=== PATIENT | male | born 1990 | race Caucasian/White ===

== ENCOUNTER 2018-01-19 16:40 | Emergency (ER) | payer OTHER ==
[~2018-01-19] VITALS: Ht 167.6 cm; Wt 68.0 kg
--- OUTSIDE RECORDS SUMMARY | 2018-01-19 16:47 | XMS REPORT | CCD ---
Author Author GRABIEL MEANS Organization Unknown Address [address] [facility] [address] [address] Care Team Providers Care Local Az Truck Driver Name Role Phone COX, SAMUEL DO Attphys COX, SAMUEL DO Prisurg Allergies Unknown or Not Available. Active Medications Unknown or Not Available. Problems Unknown or Not Available. Procedures Procedure Code Procedure Type Date CHLAMYDIA/GC AMPLIFIED DNA [id number] SNOMED CT 11/09/2015 UA ROUTINE C&S IF IND [id number] SNOMED CT 11/09/2015 ^UA AUTO DIPSTICK ONLY [id number] SNOMED CT 11/09/2015 Results UA ROUTINE C&S IF IND - Collect Date/Time: 11/09/2015 10:00 Test Name Code Test Result Test Units Test Ref Range COLOR YELLOW N/A NL: YELLOW APPEARANCE CLEAR N/A NL: CLEAR SPEC GRAV 1.015 N/A NL: 1.002 - 1.022 pH 6.5 N/A NL: 5 - 9 PROTEIN NEGATIVE N/A NL: NEGATIVE mg/dl GLUCOSE NEGATIVE N/A NL: NEGATIVE mg/dl KETONE NEGATIVE N/A NL: NEGATIVE mg/dl BILIRUBIN NEGATIVE N/A NL: NEGATIVE BLOOD NEGATIVE N/A NL: NEGATIVE NITRITE NEGATIVE N/A NL: NEGATIVE LEUK SCREEN NEGATIVE N/A NL: NEGATIVE MICRO INDICATED? NOT INDICATED N/A CHLAMYDIA/GC AMPLIFIED DNA - Collect Date/Time: 11/07/2015 10:00 Test Name Code Test Result Test Units Test Ref Range Neisseria Gonorrhoeae 87010-6 NEGATIVE N/A NEGATIVE Chlamydia Trachomatis 99105-1 NEGATIVE N/A NEGATIVE Function Status Unknown or Not Available. History of Immunizations Unknown or Not Available. Plan of Treatment Unknown or Not Available. Social History Smoking Status Code Start Date End Date Current every day smoker [id number] Vital Signs Unknown or Not Available. Function Status Unknown or Not Available. Goals Unknown or Not Available. ASSESSMENTS Unknown or Not Available. Health Concerns Section Unknown or Not Available.
--- OUTSIDE RECORDS SUMMARY | 2018-01-19 16:47 | XMS REPORT ---
Author Author JOSE JACOME Organization [facility] Address [address] [place] [address] Care Team Providers Care Talend Etl Developer Name Role Phone JOSE JACOME Unavailable PROBLEMS Type Condition ICD9-CM Code [id number] Code Onset Dates Condition Status SNOMED Code Problem Panic disorder F41.0 Active 525082599 Problem Alcohol use disorder, mild, abuse F10.10 Active 44956048 Problem Bipolar 2 disorder, major depressive episode F31.81 Active 51642517 ALLERGIES No Information ENCOUNTERS Encounter Location Date Diagnosis [place] [id number] [place] [phone] Nov, [facility] [id number] [place] [phone] Oct, [facility] [id number] [place] [phone] Oct, Bipolar 2 disorder, major depressive episode F31.81 ; Panic disorder F41.0 and Alcohol use disorder, mild, abuse F10.10 [place] [address] [place] [address] Oct, [facility] [id number] [place] [phone] Oct, Bipolar 2 disorder, major depressive episode F31.81 ; Panic disorder F41.0 and Alcohol use disorder, mild, abuse F10.10 [place] [id number] [place] [phone] Oct, Bipolar 2 disorder, major depressive episode F31.81 IMMUNIZATIONS No Known Immunizations SOCIAL HISTORY Never Assessed REASON FOR VISIT [facility] PLAN OF CARE VITAL SIGNS MEDICATIONS Medication Instructions Dosage Frequency Start Date End Date Duration Status Naltrexone HCl 50 mg Orally Once a day 1/2 tablet 24h Oct, 30 day(s) Active Vraylar 1.5 MG Orally Once a day 1 capsule 24h Oct, 30 day(s) Active RESULTS No Results PROCEDURES No Known procedures INSTRUCTIONS MEDICATIONS ADMINISTERED No Known Medications MEDICAL (GENERAL) HISTORY Type Description Date Medical History Childhood asthma Medical History BULGING DISCS Medical History MIGRAINES Medical History NERVE PAIN TO BUE Surgical History elbow nerve transposition 11/2016
--- OUTSIDE RECORDS SUMMARY | 2018-01-19 16:47 | XMS REPORT ---
Author Author QUINN CABRERA Organization [facility] Address [address] [place] [address] Care Team Providers Care Beauty School Instructor Name Role Phone QUINN CABRERA Unavailable PROBLEMS Type Condition ICD9-CM Code VSH95-KE Code Onset Dates Condition Status SNOMED Code Problem Panic disorder F41.0 Active 351424445 Problem Alcohol use disorder, mild, abuse F10.10 Active 68512706 Problem Bipolar 2 disorder, major depressive episode F31.81 Active 20236606 ALLERGIES Substance Reaction Event Type Date Status Keflex rash Drug Allergy Oct, Active ENCOUNTERS Encounter Location Date Diagnosis [facility] [id number] [place] [phone] Nov, [facility] [id number] [place] [address] [phone] Oct, [facility] [id number] [place] [address] [phone][address] [phone] Oct, Bipolar 2 disorder, major depressive episode F31.81 ; Panic disorder F41.0 and Alcohol use disorder, mild, abuse F10.10 [facility] [address] [place] [address] 47[address] [phone] Oct, [facility] [id number] [place] [address] [phone]- [phone] Oct, Bipolar 2 disorder, major depressive episode F31.81 ; Panic disorder F41.0 and Alcohol use disorder, mild, abuse F10.10 [facility] [address] [place] [address] [phone] Oct, Bipolar 2 disorder, major depressive episode F31.81 IMMUNIZATIONS No Known Immunizations SOCIAL HISTORY Never Assessed REASON FOR VISIT f/u PLAN OF CARE Activity Details Follow Up Next available Reason: VITAL SIGNS MEDICATIONS Medication Instructions Dosage Frequency Start Date End Date Duration Status Vraylar 1.5 MG Orally Once a day 1 capsule 24h Oct, 30 day(s) Unknown Naltrexone HCl 50 mg Orally Once a day 1/2 tablet 24h Oct, 30 day(s) Unknown RESULTS No Results PROCEDURES Procedure Date Ordered Result Body Site Psychotherapy, patient &/family, 30 minutes, established patient Oct 24, 2017 INSTRUCTIONS MEDICATIONS ADMINISTERED No Known Medications MEDICAL (GENERAL) HISTORY Type Description Date Medical History Childhood asthma Medical History BULGING DISCS Medical History MIGRAINES Medical History NERVE PAIN TO BUE Surgical History elbow nerve transposition 11/2016
--- OUTSIDE RECORDS SUMMARY | 2018-01-19 16:47 | XMS REPORT | CCD ---
Author Author GRABIEL MEANS Organization Unknown Address [address] [facility] [address] [address] Care Team Providers Care Milk Delivery Driver Name Role Phone COX, SAMUEL DO Attphys COX, SAMUEL DO Prisurg Allergies Unknown or Not Available. Active Medications Unknown or Not Available. Problems Unknown or Not Available. Procedures Procedure Code Procedure Type Date CHLAMYDIA/GC AMPLIFIED DNA [id number] SNOMED CT 11/09/2015 UA ROUTINE C&S IF IND [id number] SNOMED CT 11/09/2015 ^UA AUTO DIPSTICK ONLY [id number] SNOMED CT 11/09/2015 Results UA ROUTINE C&S [...] Test Units Test Ref Range Neisseria Gonorrhoeae 01398-7 NEGATIVE N/A NEGATIVE Chlamydia Trachomatis 21665-6 NEGATIVE N/A NEGATIVE Function Status Unknown or Not Available. History of Immunizations Unknown or Not Available. Plan of Treatment Unknown or Not Available. Social History Smoking Status Code Start Date End Date Current every day smoker 139814589 Vital Signs Unknown or Not Available. Function Status Unknown or Not Available. Goals Unknown or Not Available. ASSESSMENTS Unknown or Not Available. Health Concerns Section Unknown or Not Available.
--- OUTSIDE RECORDS SUMMARY | 2018-01-19 16:47 | XMS REPORT ---
Author Author BHAVNA STEELE [facility] Address [address] [place] [address] Care Team Providers Care Drum Reel Cutter Name Role Phone IVETTEBHAVNA Unavailable PROBLEMS Type Condition ICD9-CM Code [id number]-UZ Code Onset Dates Condition Status SNOMED Code Problem Panic disorder F41.0 Active 014560132 Problem Alcohol use disorder, mild, abuse F10.10 Active 67162488 Problem Bipolar 2 disorder, major depressive episode F31.81 Active 06940151 ALLERGIES No Information ENCOUNTERS Encounter Location Date Diagnosis [place] [address] [place] [phone] Oct, [facility] [id number] [place] [phone] Oct, Bipolar 2 disorder, major depressive episode F31.81 ; Panic disorder F41.0 and Alcohol use disorder, mild, abuse F10.10 [facility] [address] [place] [address]13[phone] Oct, [facility] [address] [address] Oct, Bipolar 2 disorder, major depressive episode F31.81 ; Panic disorder F41.0 and Alcohol use disorder, mild, abuse F10.10 [facility] [address] [place] [address] 12527[phone] Oct, Bipolar 2 disorder, major depressive episode F31.81 IMMUNIZATIONS No Known Immunizations SOCIAL HISTORY Never Assessed REASON FOR VISIT Vraylar non-form, discuss other med options PLAN OF CARE VITAL SIGNS MEDICATIONS Medication Instructions Dosage Frequency Start Date End Date Duration Status Abilify 5 mg Orally Once a day for two weeks, then 1 tablet daily 1/2 tablet Oct, 30 day(s) Active RESULTS No Results PROCEDURES No Known procedures INSTRUCTIONS MEDICATIONS ADMINISTERED No Known Medications MEDICAL (GENERAL) HISTORY Type Description Date Medical History Childhood asthma Medical History BULGING DISCS Medical History MIGRAINES Medical History NERVE PAIN TO BUE Surgical History elbow nerve transposition 11/2016
--- OUTSIDE RECORDS SUMMARY | 2018-01-19 16:47 | XMS REPORT ---
Author Author BHAVNA STEELE [facility] Address [address] [place] [address] Care Team Providers Care Semiconductor Wafer Inspector Name Role Phone IVETTEBHAVNA Unavailable PROBLEMS Type Condition ICD9-CM Code [id number] Code Onset Dates Condition Status SNOMED Code Problem Panic disorder F41.0 Active 882544319 Problem Alcohol use disorder, mild, abuse F10.10 Active 61658616 Problem Bipolar 2 disorder, major depressive episode F31.81 Active 47961902 ALLERGIES Substance Reaction Event Type Date Status Keflex rash Drug Allergy Oct, Active ENCOUNTERS Encounter Location Date Diagnosis [facility] [id number] [place] [phone][phone] Nov, [facility] [id number] [place] [address] 08061[address] [phone] Oct, [facility] [id number] [place] [address] [phone]- [phone] Oct, Bipolar 2 disorder, major depressive episode F31.81 ; Panic disorder F41.0 and Alcohol use disorder, mild, abuse F10.10 [facility] [id number] [place] [address] 13830- [phone] Oct, [facility] [id number] [place] [address] 49945- [phone] 18 Oct, 2017 Bipolar 2 disorder, major depressive episode F31.81 ; Panic disorder F41.0 and Alcohol use disorder, mild, abuse F10.10 [facility] [address] [place] [address] 21618- [phone] Oct, Bipolar 2 disorder, major depressive episode F31.81 IMMUNIZATIONS No Known Immunizations SOCIAL HISTORY Never Assessed REASON FOR VISIT intakeJjournotRN PLAN OF CARE Activity Details Follow Up 3 Weeks Reason: f/u VITAL SIGNS Height 67 in 2017-10-24 Weight 149.6 lbs 2017-10-24 Heart Rate 104 bpm 2017-10-24 Respiratory Rate 18 2017-10-24 BMI 23.43 kg/m2 2017-10-24 Blood pressure systolic 112 mmHg 2017-10-24 Blood pressure diastolic 84 mmHg 2017-10-24 MEDICATIONS Medication Instructions Dosage Frequency Start Date [...]
--- OUTSIDE RECORDS SUMMARY | 2018-01-19 16:48 | XMS REPORT ---
Author Author Jonas Ramos Organization [facility] Address [address] [place], [place] [address] Care Team Providers Care Tromper Name Role Phone Jonas Ramos PCP Unavailable Allergies and Adverse Reactions Name Reaction Notes Keflex Rash/Hives gabapentin Altered mental status Plan of Treatment Planned Activity Comments Planned Date Planned Time Plan/Goal CT ABD & PELVIS W/O CONTRAST 11/11/2015 12:00 AM Medications Active Name Start Date Estimated Completion Date SIG Comments cyclobenzaprine 10 mg oral tablet 1 tablet before bed. 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 History of Past Illness Name Date of Onset Comments Neck pain Hip pain, chronic, unspecified laterality Frequency of micturition 11/11/2015 Urgency of urination 11/11/2015 Kidney stones Nov 11 2015 1:45PM Frequency of micturition Nov 11 2015 1:25PM Male pelvic pain Nov 11 2015 1:25PM Urgency of urination Nov 11 2015 1:25PM Payers Insurance Name Company Name Plan Name Plan Number Policy Number Policy Group Number Start Date [facility] [id number] N/A History of Encounters Visit Date Visit Type Provider 11/11/2015 Office visit Jonas Ramos MD
--- OUTSIDE RECORDS SUMMARY | 2018-01-19 16:48 | XMS REPORT | Continuity of Care Document ---
Author Author [facility] Address Unknown Phone Unavailable Allergies Active Description Code Type Severity Reaction Onset Reported/Identified Relationship to Patient Clinical Status Yes KEFLEX [id number] Drug Allergy N/A N/A Yes gabapentin Drug N/A N/A Yes Keflex Drug N/A 327498800~[id number] Yes Keflex Drug N/A N/ A Medications There is no data. Problems There is no data. Procedures There is no data. Results There is no data. Encounters ACCT No. Visit Date/Time Discharge Status Pt. Type Provider Facility Loc./Unit Complaint [id number] 11/13/2015 10:05:43 11/13/2015 23:59:59 CLS Outpatient Rachel, V S [id number] 11/11/2015 14:11:53 11/11/2015 23:59:59 CLS Outpatient Rachel, V S [id number] 11/01/2016 15:07:36 11/01/2016 15:07:36 DIS Unknown [id number] 12/16/2016 13:01:00 12/16/2016 15:53:00 DIS Emergency WILBER BURG[facility] ED headache [id number] 11/09/2016 15:00:00 11/09/2016 23:59:59 DIS Outpatient WANDA WOODRUFF [facility] [id number] 10/26/2016 00:00:00 10/26/2016 23:59:59 CLS Outpatient BG QUINONES [facility] Ortho [id number] 10/26/2016 09:46:40 10/26/2016 13:36:00 DIS Outpatient GB QUINONES [facility] Surgery R elbow ulnar nerve decompression [id number] 10/11/2016 09:00:00 10/11/2016 23:59:59 DIS Outpatient BG QUINONES [facility] Orth[facility] [id number] 09/22/2016 14:14:14 09/22/2016 23:59:59 DIS Outpatient WANDA WOODRUFF [facility] [id number] 09/21/2016 07:21:32 09/21/2016 23:59:59 DIS Outpatient WANDA WOODRUFF [facility] RAD cervicalgia [id number] 08/22/2016 10:49:26 08/22/2016 23:59:59 DIS Outpatient WANDA WOODRUFF [facility] [id number] 07/01/2016 07:57:26 07/01/2016 23:59:59 CLS Outpatient WANDA WOODRUFF [facility] [id number] 06/23/2016 12:53:48 06/23/2016 23:59:59 CLS Outpatient WOODRUFFWANDA [facility] RAD L4-L5 disc bulge [id number] 06/02/2016 13:29:08 06/02/2016 23:59:59 CLS Outpatient WANDA WOODRUFF Jackie [facility] Ortho [id number] 05/26/2016 13:16:00 05/30/2016 17:00:00 DIS R TAWNYA REYNOSO [facility] PT Neck, LBP [id number] 05/16/2016 10:23:45 05/16/2016 23:59:59 CLS Outpatient TAWNYA REYNOSO [facility] [id number] 05/12/2016 17:46:37 05/12/2016 23:59:59 CLS Outpatient TAWNYA REYNOSO [facility] xray [id number] 05/12/2016 15:09:34 05/12/2016 23:59:59 CLS Outpatient TAWNYA REYNOSO [facility]
--- OUTSIDE RECORDS SUMMARY | 2018-01-19 16:48 | XMS REPORT | Clinical Summary ---
Author Author Admin, QIE Organization [facility] Address Unknown Phone Allergies, Adverse Reactions, Alerts Allergy Name Reaction Description Start Date Severity Status Provider KEFLEX Critical Active Carline Gamez RN Conditions or Problems Problem Name Problem Code Onset Date Status Entry Date Provider Comment Standard Description Annotate ASTHMA 493.90 Active Carline Gamez RN Asthma, unspecified Medication List Medication Instructions Start Date Stop Date Generic Name NDC Status Provider Patient Instruction No Drug Therapy Prescribed - none known did ask Carline Gamez RN Immunizations Vaccine Administration Date Value Standard Description dT (Diphtheria and Tetanus) booster Historical Td(adult) unspecified formulation adult Td booster (tetanus, diphtheria) Td (adult) - Unspecified Formulation [[id number]] Td(adult) unspecified formulation hepatitis B vaccine #2 Hepatitis B - Unspecified Formulation [ CVX45] hepatitis B vaccine, unspecified formulation hepatitis B vaccine #1 Hepatitis B - Unspecified Formulation [ CVX45] hepatitis B vaccine, unspecified formulation MMR virus immunization #2 MMR - Unspecified Formulation [CVX04] oral polio vaccine (OPV) #4 Polio - Unspecified Formulation [CVX89 ] poliovirus vaccine, unspecified formulation DTaP (Diphtheria, Tetanus, and acellular Pertussis) immunization #5 DTaP - Unspecified Formulation [[id number]] diphtheria, tetanus toxoids and acellular pertussis vaccine MMR virus immunization #1 MMR - Unspecified Formulation [CVX04] oral polio vaccine (OPV) #3 Polio - Unspecified Formulation [CVX89 ] poliovirus vaccine, unspecified formulation DTaP (Diphtheria, Tetanus, and acellular Pertussis) immunization #4 DTaP - Unspecified Formulation [UYR312] diphtheria, tetanus toxoids and acellular pertussis vaccine HIB (H influenzae B) #3 Hib Unspecified Formulation [CVX17] Haemophilus influenzae type b vaccine, conjugate unspecified formulation DTaP (Diphtheria, Tetanus, and acellular Pertussis) immunization #3 DTaP - Unspecified Formulation [KCH853] diphtheria, tetanus toxoids and acellular pertussis vaccine HIB (H influenzae B) #2 Hib Unspecified Formulation [CVX17] Haemophilus influenzae type b vaccine, conjugate unspecified formulation oral polio vaccine (OPV) #2 Polio - Unspecified Formulation [CVX89 ] poliovirus vaccine, unspecified formulation DTaP (Diphtheria, Tetanus, and acellular Pertussis) immunization #2 DTaP - Unspecified Formulation [[id number]] diphtheria, tetanus toxoids and acellular pertussis vaccine HIB (H influenzae B) #1 Hib Unspecified Formulation [CVX17] Haemophilus influenzae type b vaccine, conjugate unspecified formulation oral polio vaccine (OPV) #1 Polio - Unspecified Formulation [CVX89 ] poliovirus vaccine, unspecified formulation DTaP (Diphtheria, Tetanus, and acellular Pertussis) immunization #1 DTaP - Unspecified Formulation [HZK020] diphtheria, tetanus toxoids and acellular pertussis vaccine Encounters Code Encounter Date Provider Facility [id number] Level 3 Est. Patient 14:21:44 CDT John MARES [facility]
--- OUTSIDE RECORDS SUMMARY | 2018-01-19 16:48 | XMS REPORT ---
Author Author Jonas Ramos Organization [facility] Address [address] [place], [place] [address] Care Team Providers Care Strip Machine Tender Name Role Phone Jonas Ramos PCP Unavailable Allergies and Adverse Reactions Name Reaction Notes Keflex Rash/Hives gabapentin Altered mental status Plan of Treatment Planned Activity Comments Planned Date Planned Time Plan/Goal CT ABD & PELVIS W/O CONTRAST 11/11/2015 12:00 AM Medications Active Name Start Date Estimated Completion Date SIG Comments cyclobenzaprine 10 mg oral tablet 1 tablet before bed. Problem List Not available. 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 Results Summary Not available. History Of Immunizations Not available. History of Past Illness Name Date of Onset Comments Neck pain Hip pain, chronic, unspecified laterality Kidney stones Nov 11 2015 1:45PM Payers Insurance Name Company Name Plan Name Plan Number Policy Number Policy Group Number Start Date [facility] [id number] N/A History of Encounters Visit Date Visit Type Provider 11/11/2015 Office visit Jonas Ramos MD
[2018-01-19] MEDS ORDERED: HYDROcodone/APAP 5 MG/325 MG (LORTAB) TAB PO STA (17:43)
--- NOTE | 2018-01-19 17:52 | ED Head Injury ---
General Chief Complaint: Head/Cervical Problems Stated Complaint: HEAD INJURY Nursing Triage Note: PT PRESENTS TO ED WITH MOTHER. STORY RECEIVED FROM BOTH IS VERY VAGUE. PT WAS APPARENTLY SAT DOWN ON A STOOL POSSIBLY WHILE AT WORK FOR BEING INTOXICATED. PT FELL OF STOOL AND HIT HEAD ON MONDAY. HAS BEEN TIRED, NAUSEA, AND GUTIERREZ SINCE. PT STATES HE NOW HURTS FROM HEAD TO TOE. Source: patient, family (mother) Exam Limitations: other (patient is very vague) History of Present Illness Date Seen by Provider: Jan 19, 2018 Time Seen by Provider: 17:30 Initial Comments 27-year-old male patient presents to the emergency department with his mother with reports of falling off of a stool and hitting his head while at the senior care early Monday morning. Patient is very vague about history of present illness. Patient reports passing out prior to hitting the floor due to intoxication. He does have a history of chronic neck pain and back pain. Patient states the neck pain is worse than his usual chronic neck pain. Denies worsened back pain. Initially patient reported nausea, but now states he has not had any nausea or vomiting. He has been very fatigued and does have a headache currently. Patient states he hurts "all over." Denies confusion, dizziness, changes in vision, one-sided weakness, numbness, tingling, bowel incontinence, or bladder incontinence. Location Injury Occurred: senior care Occurred: other (onset early Monday) Location: occipital Method of Injury: fell Pain/Injuries: And neck Loss of Consciousness: brief (seconds) (patient reports passing out prior to falling off the stool.) Allergies and Home Medications Allergies Coded Allergies: cephalexin (Verified Allergy, Unknown, 01/19/18) Home Medications Cyclobenzaprine HCl 10 Mg Tablet, 10 MG PO TID PRN for SPASMS Prescribed by: JOVANA ARANA on 01/19/181847 Naproxen 500 Mg Tablet, 500 MG PO BID Prescribed by: JOVANA ARANA on 01/19/181847 Prednisone 20 Mg Tab, 40 MG PO DAILY Take 3 tabs(60mg)daily, decrease by 1/2 tab(10mg)daily. Prescribed by: JOVANA ARANA on 01/19/181847 Patient Home Medication List Home Medication List Reviewed: Yes Review of Systems Review of Systems Constitutional: see HPI; No diaphoresis, No dizziness, No fever; other (fatigue ) Eyes: Denies Blindness, Denies Blurred Vision, Denies Drainage, Denies Pain, Denies Photophobia, Denies Tunnel Vision, Denies Vision Changes Ears, Nose, Mouth, Throat: denies ear pain, denies ear discharge, denies nose pain, denies nose discharge, denies epistaxis, denies mouth pain, denies loose teeth, denies throat pain Respiratory: no symptoms reported Cardiovascular: no symptoms reported Gastrointestinal: no symptoms reported; No other (denies bowel incontinence) Genitourinary: No decreased output, No dysuria, No frequency, No incontinence Musculoskeletal: see HPI, back pain (chronic back pain); No joint pain; muscle pain (generalized muscle pain), neck pain Skin: no symptoms reported Psychiatric/Neurological: See HPI; Denies Cognitive Dysfunction; Headache; Denies Numbness, Denies Pet[place] Mal Seizures, Denies Tingling, Denies Tonic Clonic Seizures, Denies Unable to Move Lower Ext, Denies Unable to Move Upper Ext, Denies Weakness All Other Systems Reviewed Negative Unless Noted: Yes (Negative excepted noted.) Past Mdtnahu-Gijaqd-Usggmf Hx Past Med/Social Hx: Reviewed and Corrections made Patient Social History Alcohol Use: Occasionally Uses Alcohol Beverage of Choice: Beer Recreational Drug Use: No Smoking Status: Current Everyday Smoker Type Used: Cigarettes Recent Foreign Travel: No Contact w/Someone Who Travel: No Recent Infectious Disease Expo: No Recent Hopitalizations: No Physical Abuse: No Sexual Abuse: No Mistreated: No Seasonal Allergies Seasonal Allergies: No Past Medical History Surgeries: Yes (ULNAR NERVE REMOVED) Respiratory: No Cardiac: No Neurological: No Genitourinary: No Gastrointestinal: No Musculoskeletal: Yes (chronic neck pain) Back Injury (history of a back injury several years ago), Chronic Back Pain Endocrine: No HEENT: No Cancer: No Psychosocial: No Integumentary: No Blood Disorders: No Family Medical History Reviewed Nursing Family Hx No Pertinent Family Hx Physical Exam Vital Signs Vital Signs - First Documented 01/19/18 16:57 Temp 98.5 Pulse 122 Resp 12 B/P (MAP) 129/77 (94) Pulse Ox 98 Capillary Refill : Less Than 3 Seconds Height, Weight, BMI Height: 5'6.00" Weight: 150lbs. oz. [phone]; BMI Method:Stated General Appearance: WD/WN, no apparent distress HEENT: PERRL/EOMI, normal ENT inspection, TMs normal, pharynx normal, other ( normocephalic, atraumatic. Patient does have mild tenderness to the right occipital scalp.) Neck: full range of motion, supple, normal inspection, tender lateral Cardiovascular: normal peripheral pulses, regular rate, rhythm, no edema, no murmur Respiratory: lungs clear, normal breath sounds, no respiratory distress, no accessory muscle use Gastrointestinal: normal bowel sounds, non tender, soft, no organomegaly Back: normal inspection, no vertebral tenderness; No decreased range of motion ; muscle spasm (bilateral paraspinous muscle spasm with tenderness) Extremities: normal range of motion, non-tender, normal inspection, no pedal edema, normal capillary refill, pelvis stable Psychiatric: alert, oriented x 3 Crainal Nerves: normal hearing, normal speech, PERRL Coordination/Gait: normal finger to nose, normal gait, negative Romberg's sign Motor/Sensory: no motor deficit, no sensory deficit, no pronator drift Skin: normal color, warm/dry; No ecchymosis (no evidence of trauma visible on exam) Kassandra Coma Score Best Eye Response: (4) Open Spontaneously Best Verbal Response: (5) Oriented Best Motor Response: (6) Obeys Commands Kassandra Total: 15 Progress/Results/Core Measures Results/Orders My Orders Orders - JOVANA ARANA Ct Head/Cervical Spine Wo (01/19/18 17:43) Hydrocodone/Apap 5/325 Tablet (Lortab 5 (01/19/18 17:43) Vital Signs/I&O 01/19/18 01/19/18 16:57 18:54 Temp 98.5 98.6 Pulse 122 110 Resp 12 12 B/P (MAP) 129/77 (94) 129/71 (90) Pulse Ox 98 96 Blood Pressure Mean: 94 Diagnostic Imaging Diagonstic Imaging: CT Plain Films/CT/US/NM/MRI: c-spine, head Comments CT HEAD/CERVICAL SPINE WO PROCEDURE: CT head and CT cervical spine without contrast. TECHNIQUE: Multiple contiguous axial images were obtained through the brain and cervical spine without the use of intravenous contrast. Sagittal and coronal reformations through the cervical spine were then performed. INDICATION : Head injury from striking his head on a concrete floor. FINDINGS: CT HEAD: The ventricles are normal in size, shape and position. There are no masses or hemorrhages. There are no extra-axial fluid collections. IMPRESSION: Negative CT head. CT CERVICAL SPINE: Vertebral body height and alignment appear normal. Disc spaces are normal. There is no prevertebral soft tissue swelling. IMPRESSION: Negative CT cervical spine. Dictated on workstation # [id number] Reviewed: Reviewed by Me (radiology report reviewed by me) Departure Communication (Admissions) Patient seen and evaluated. CT head and neck obtained. Patient was given 1 dose of hydrocodone. Diagnostic findings discussed with the patient. Patient reports feeling much better with the hydrocodone. Plan for discharge to home with follow-up as an outpatient with his PCP in [place], [place]. Impression Primary Impression: Minor head injury Qualified Codes: S09.90XA - Unspecified injury of head, initial encounter Additional Impression: Cervical strain, acute Qualified Codes: S16.1XXA - Strain of muscle, fascia and tendon at neck level , initial encounter Disposition: HOME, SELF-CARE Condition: Improved Departure-Patient Inst. Decision time for Depature: 18:46 Referrals: NO,LOCAL PHYSICIAN (PCP) Primary Care Physician ADRIAN MONGE (Family) Primary Care Physician Patient Instructions: Concussion, Adult (DC), Neck Sprain (DC) Add. Discharge Instructions: All discharge instructions reviewed with patient and/or family. Voiced understanding. Medications as instructed. Tylenol Extra Strength over-the- counter as directed for pain. No heavy lifting, pushing, pulling, twisting, bending, climbing for one week after your headache resolves. You may use ice packs or heating pads as needed for pain. Follow-up with your family practitioner for recheck this week. Call Monday for appointment time. Return to the emergency department for worsened symptoms or any other concerns. Scripts Naproxen (Naprosyn) 500 Mg Tablet 500 MG PO BID for Pain, #20 TAB 0 Refills Prov: JOVANA ARANA 01/19/18 Cyclobenzaprine HCl (Cyclobenzaprine HCl) 10 Mg Tablet 10 MG PO TID PRN for SPASMS, #14 TAB 0 Refills Prov: JOVANA ARANA 01/19/18 Prednisone (Prednisone) 20 Mg Tab 40 MG PO DAILY, #10 TAB 0 Refills Take 3 tabs(60mg)daily, decrease by 1/2 tab(10mg)daily. Prov: JOVANA ARANA 01/19/18 Work/School Note: Work Release Form Date Seen in the Emergency Department: Jan 19, 2018 Return to Work: Jan 20, 2018 Other Restrictions Listed Below: no strenuous activity or heavy lifting x7d after headache resolves. JOVANA ARANA Jan 19, 2018 17:52
--- NOTE | 2018-01-19 18:23 | Diagnostic Imaging Report ---
PROCEDURE: CT head and CT cervical spine without contrast. TECHNIQUE: Multiple contiguous axial images were obtained through the brain and cervical spine without the use of intravenous contrast. Sagittal and coronal reformations through the cervical spine were then performed. INDICATION: Head injury from striking his head on a concrete floor. FINDINGS: CT HEAD: The ventricles are normal in size, shape and position. There are no masses or hemorrhages. There are no extra-axial fluid collections. IMPRESSION: Negative CT head. CT CERVICAL SPINE: Vertebral body height and alignment appear normal. Disc spaces are normal. There is no prevertebral soft tissue swelling. IMPRESSION: Negative CT cervical spine. Dictated by: Dictated on workstation # [id number]
[2018-01-19] MEDS ORDERED: NAPR-1071 PO (18:48)
[2018-01-19] MEDS ORDERED: CYCL10TA9 PO (18:48)
[2018-01-19] MEDS ORDERED: PRD20T PO (18:48)
[2018-01-19 18:54] VITALS: BP 129/71
== END 2018-01-19 18:54 | disposition home or self-care (01) ==
LOC: ER 16:43
DX: S09.90XA Unspecified injury of head, initial encounter (principal); S16.1XXA Strain of muscle, fascia and tendon at neck level, initial encounter; R40.2142 Coma scale, eyes open, spontaneous, at arrival to emergency department; R40.2252 Coma scale, best verbal response, oriented, at arrival to emergency department; R40.2362 Coma scale, best motor response, obeys commands, at arrival to emergency department; F10.10 Alcohol abuse, uncomplicated; F17.210 Nicotine dependence, cigarettes, uncomplicated; Z88.8 Allergy status to other drugs, medicaments and biological substances; Z79.52 Long term (current) use of systemic steroids; W08.XXXA Fall from other furniture, initial encounter; W22.09XA Striking against other stationary object, initial encounter; Y92.149 Unspecified place in prison as the place of occurrence of the external cause
CPT/HCPCS: 70450; 72125